=== PATIENT | female | born 2000 | race Caucasian/White ===

== ENCOUNTER 2025-05-29 02:46 | Emergency (ER) | payer MEDICAID ==
[~2025-05-29] VITALS: Ht 157.5 cm; Wt 69.0 kg
[2025-05-29 03:02] VITALS: O2SAT 100
[2025-05-29 03:48] LABS: BASOPHILS % 0.4 % (0.0-2.0); EOSINOPHILS % 1.2 % (0.0-5.0); HEMATOCRIT. 32.3 % (36.0-48.0); HEMOGLOBIN. 9.9 g/dL (12.0-16.0); LYMPHOCYTES % 26.0 % (20.0-50.0); MEAN PLATELET VOLUME 9.1 fl (7.4-10.4); MONOCYTES % 8.2 % (2.0-8.0); NEUTROPHILS % 64.2 % (40.0-76.0); PLATELET 266 x1000/uL (130-400); RED BLOOD CELL COUNT 4.59 mill/uL (4.2-5.4); RED CELL DISTRIBUTION WIDTH 19.4 % (11.6-14.6)
[2025-05-29 03:59] LABS: CREATININE 0.4 mg/dL (0.6-1.0); INR 0.9
[2025-05-29 04:00] VITALS: BP 127/84; PULSE 86; RESP 18; TEMP 36.9; O2SAT 100
[2025-05-29 04:00] LABS: ETHANOL BLOOD < 10 mg/dL (<10); UREA NITROGEN BLOOD < 5 mg/dL (9-23)
[2025-05-29 04:01] LABS: ASPARTATE AMINOTRANSFERASE 22 IU/L (<34)
[2025-05-29 04:02] LABS: BILIRUBIN DIRECT < 0.1 mg/dL (<=3.0); BILIRUBIN TOTAL 0.4 mg/dL (0.1-1.0); PROTEIN TOTAL 6.8 g/dL (6.0-8.3)
[2025-05-30 05:08] LABS: HSV TYPE 2 SPECIFIC AB IGG Non Reactive (Non Reactive)
== END 2025-05-29 04:09 | disposition short-term general hospital (02) ==
LOC: ER 02:46 → CMPBEDREQ 05-30 19:25
DX: O26.893 Other specified pregnancy related conditions, third trimester (principal); R10.84 Generalized abdominal pain; O99.013 Anemia complicating pregnancy, third trimester; Z79.899 Other long term (current) drug therapy; Z3A.39 39 weeks gestation of pregnancy
CPT/HCPCS: 36415; 76805; 80048; 80076; 80320; 83735; 85025; 86592; 86695; 86696; 86850; 86900; 87340; 99285; G0480